=== PATIENT | male | born 1975 | race Two or more races ===

== ENCOUNTER 2023-07-23 15:24 | Outpatient (CLI) | payer MEDICAID | END 2023-07-23 23:59 | disposition home or self-care (01) | LOC: RAD 15:24 | PROVIDERS: ATTEND Family Medicine | DX: M25.811 Other specified joint disorders, right shoulder (principal); M25.812 Other specified joint disorders, left shoulder; M25.712 Osteophyte, left shoulder; M25.711 Osteophyte, right shoulder; M47.816 Spondylosis without myelopathy or radiculopathy, lumbar region; M25.511 Pain in right shoulder; M54.50 Low back pain, unspecified | CPT/HCPCS: 72110; 73030 ==

== ENCOUNTER 2024-11-24 14:21 | Outpatient (CLI) | payer MEDICAID ==
--- NOTE | 2024-11-24 15:29 | RADIOLOGY REPORT ---
EXAM: MR MRI UPPER EXTREMITY RIGHT INDICATION: PAIN IN RIGHT SHOULDER, PAIN IN LEFT SHOULDER TECHNIQUE: Multiplanar, multisequence MR images of the right shoulder were obtained in the absence of gadolinium contrast material. COMPARISON: MR MRI UPPER EXTREMITY LEFT on DOS: 11/24/24 FINDINGS: [CORACOACROMIAL ARCH]: Mild degenerative change of the acromioclavicular joint. Intact coracoclavicular ligaments. Intact coracoacromial ligaments. No subacromial/subdeltoid bursal fluid. [ROTATOR CUFF]: Mild tendinosis of the superior rotator cuff. Trace interstitial tearing of the distal insertion of the posterior fibers of the supraspinatus. Mild tendinosis of the subscapularis tendon [BICEPS TENDON]: Intact without tenosynovitis. [LABRUM]: Intact. [CARTILAGE]: No measurable cartilage defect. [GLENOHUMERAL JOINT]: No joint effusion. No intra-articular body. thickening of the axillary pouch. Correlate for sequelae of adhesive capsulitis [BONES]: No acute fracture, osseous contusion, or aggressive focal osseous lesion. [MUSCLES]: Normal muscle bulk of the rotator cuff muscles. [NEUROVASCULAR/LYMPH NODES]: Normal. [OTHER]: None. IMPRESSION: 1. No full-thickness rotator cuff tear. 2. Trace interstitial tearing of the distal insertion of the posterior fibers of the supraspinatus. 3. Thickening of the axillary pouch. 4. Correlate for sequelae of adhesive capsulitis.
--- NOTE | 2024-11-24 15:40 | RADIOLOGY REPORT ---
EXAM: MR MRI UPPER EXTREMITY LEFT INDICATION: PAIN IN LEFT SHOULDER TECHNIQUE: Multiplanar, multisequence MR images of the left shoulder were obtained in the absence of gadolinium contrast material. COMPARISON: MR MRI UPPER EXTREMITY RIGHT on DOS: 11/24/24 FINDINGS: [CORACOACROMIAL ARCH]: Mild capsular hypertrophy of the acromioclavicular joint. Intact coracoclavicular ligaments. Intact coracoacromial ligaments. No subacromial/subdeltoid bursal fluid. [ROTATOR CUFF]: Mild tendinosis of the superior rotator cuff trace possible interstitial tear versus sequelae of tendinosis of the distal insertion of the supraspinatus tendon of the greater tuberosity footprint. [BICEPS TENDON]: Intact without tenosynovitis. [LABRUM]: Biceps labral anchor complex slight tearing extending into the posterior superior quadrant [CARTILAGE]: No measurable cartilage defect. [GLENOHUMERAL JOINT]: No joint effusion. No intra-articular body. Mild thickening of the axillary pouch which may be seen in the setting of adhesive capsulitis. [BONES]: No acute fracture, osseous contusion, or aggressive focal osseous lesion. subcortical cysts of the lesser tuberosity. [MUSCLES]: Normal muscle bulk of the rotator cuff muscles. [NEUROVASCULAR/LYMPH NODES]: Normal. [OTHER]: None. IMPRESSION: 1. Mild tendinosis of the superior rotator cuff with possible trace interstitial tear versus sequelae of tendinosis of the distal insertion of the supraspinatus tendon of the greater tuberosity footprint. 2. Biceps labral anchor complex slight tearing extending into the posterior superior quadrant.
== END 2024-11-24 23:59 | disposition home or self-care (01) ==
LOC: MRI02 14:21
PROVIDERS: ATTEND Physician Assistant Surgical
DX: M19.012 Primary osteoarthritis, left shoulder (principal); M19.011 Primary osteoarthritis, right shoulder; M75.82 Other shoulder lesions, left shoulder; M75.81 Other shoulder lesions, right shoulder; M25.511 Pain in right shoulder; M25.512 Pain in left shoulder
CPT/HCPCS: 73221